=== PATIENT | female | born 1960 | race Caucasian/White ===

== ENCOUNTER 2020-09-06 10:16 | Emergency (ER) | payer OTHER ==
[~2020-09-06 10:16] MED LIST: CIPRO500 MG PO; FLAGYL500 MG PO; FLEXERIL 10 MG10 MG PO; LEVAQUIN500 MG PO; LODINE CAP 300300 MG PO; PRINIVIL5 MG PO; VANCOMYCIN HCL125 MG PO
[2020-09-06 11:18] LABS: HEMOGLOBIN 13.1 gm/dl (12.3-15.3); RED BLOOD COUNT 4.41 M/UL (4.00-5.10); WHITE BLOOD COUNT 15.1 K/UL (4.5-11.0)
[2020-09-06] MEDS ORDERED: CIPRO500 MG PO (14:19)
[2020-09-06] MEDS ORDERED: FLAGYL500 MG PO (14:19)
[2020-09-06] MEDS ORDERED: AUGMENTIN 875-1 EACH PO (14:21)
== END 2020-09-06 14:35 | disposition home or self-care (01) ==
LOC: ER1 10:16
PROVIDERS: Physician Assistant
DX: K57.32 Diverticulitis of large intestine without perforation or abscess without bleeding (principal); I10 Essential (primary) hypertension; Z87.19 Personal history of other diseases of the digestive system; Z90.710 Acquired absence of both cervix and uterus
CPT/HCPCS: 80053; 81001; 85025; 99284; Q9967

== ENCOUNTER 2020-12-05 15:17 | Observation (INO) | payer OTHER ==
[~2020-12-05] VITALS: Ht 160 cm; Wt 65.3 kg
[~2020-12-05 15:17] MED LIST changes: +AUGMENTIN 875-1 EACH PO
[2020-12-05 15:58] LABS: HEMOGLOBIN 12.9 gm/dl (12.3-15.3); RED BLOOD COUNT 4.25 M/UL (4.00-5.10); WHITE BLOOD COUNT 16.2 K/UL (4.5-11.0)
[2020-12-05 16:32] LABS: BUN/CREATININE RATIO 10 (0-10)
[2020-12-06 07:05] LABS: RED BLOOD COUNT 3.63 M/UL (4.00-5.10); WHITE BLOOD COUNT 14.4 K/UL (4.5-11.0)
[2020-12-06 07:06] LABS: HEMOGLOBIN 10.9 gm/dl (12.3-15.3)
[2020-12-06 07:36] LABS: BUN/CREATININE RATIO 10 (0-10)
[2020-12-06] MEDS ORDERED: SYNTHROID50 MCG PO (09:21)
[2020-12-07 03:26] LABS: HEMOGLOBIN 10.2 gm/dl (12.3-15.3); RED BLOOD COUNT 3.41 M/UL (4.00-5.10)
[2020-12-07 03:34] LABS: WHITE BLOOD COUNT 9.5 K/UL (4.5-11.0)
[2020-12-07 03:58] LABS: BUN/CREATININE RATIO 9 (0-10)
[2020-12-07] MEDS ORDERED: ACETAMINOPHEN325 MG PO (15:03)
[2020-12-07] MEDS ORDERED: FLAGYL500 MG PO (15:03)
[2020-12-07] MEDS ORDERED: LEVOFLOXACIN500 MG PO (15:03)
[2020-12-07] MEDS ORDERED: KRISTALOSE10 GM PO (15:03)
== END 2020-12-07 17:20 | disposition home or self-care (01) ==
LOC: ER1 15:17 → CDU 18:25 → M/S 18:25 → PROG CARE 12-06 03:00 → M/S 12-06 09:12
PROVIDERS: Emergency Medicine; ADMIT Internal Medicine
DX: K57.32 Diverticulitis of large intestine without perforation or abscess without bleeding (principal); I10 Essential (primary) hypertension; E03.9 Hypothyroidism, unspecified; M19.90 Unspecified osteoarthritis, unspecified site; Z79.899 Other long term (current) drug therapy; Z20.822 Contact with and (suspected) exposure to COVID-19
CPT/HCPCS: 36415; 80053; 81001; 83605; 83690; 83735; 85025; 87040; 96365; 96368; 96372; 96375; 96376; 99284; C9113; G0378; J1650; J1956; J2270; J2405; J2543; J7030; Q9967; U0002

== ENCOUNTER 2021-07-06 14:57 | Emergency (ER) | payer OTHER ==
[~2021-07-06 14:57] MED LIST changes: +ACETAMINOPHEN325 MG PO; +KRISTALOSE10 GM PO; +LEVOFLOXACIN500 MG PO; +SYNTHROID50 MCG PO
[2021-07-06] MEDS ORDERED: NAPROXEN500 MG PO (17:15)
== END 2021-07-06 17:30 | disposition home or self-care (01) ==
LOC: ER1 14:57
DX: M79.661 Pain in right lower leg (principal); E78.5 Hyperlipidemia, unspecified; I10 Essential (primary) hypertension
CPT/HCPCS: 73590; 99283

== ENCOUNTER → 2021-08-17 | Outpatient (CLI) | payer OTHER ==
[~2021-08-17] MED LIST changes: +NAPROXEN500 MG PO
== END ==
LOC: KOH-I 13:00
DX: M79.661 Pain in right lower leg (principal); R60.0 Localized edema
CPT/HCPCS: 73700